=== PATIENT | female | born 1995 | race Caucasian/White ===

== ENCOUNTER 2023-05-31 13:13 | Inpatient (IN) | payer BC ==
[2023-05-31 13:52] LABS: #Eosinphils 0.1 10x3/uL (0.0-0.5); #Monocytes 0.3 10x3/uL (0.0-1.1); #Neutrophils 3.1 10x3/uL (1.5-8.4); %Basophils 0.4 % (0.0-2.0); %Lymphocytes 31.3 % (18.0-47.0); %Monocytes 6.1 % (0.0-10.0); Hematocrit 46.5 % (34.9-44.5); Hemoglobin 16.1 g/dL (12.0-15.5); Mean Corpuscular HGB CONC 34.6 g/dL (32.0-36.0); Mean Corpuscular Hemoglobin 31.9 pg (27.0-33.0); Mean Corpuscular Volume 92.3 fl (81.6-98.3); Mean Platelet Volume 8.9 fl (7.4-10.4); Platelet Count 215 10x3/uL (150-450); RBC Distribution Width 11.7 % (11.5-14.5); Red Blood Cell (RBC) Count 5.04 10x6/uL (3.90-5.03); White Blood Cell (WBC) Count 5.1 10x3/uL (3.5-10.5)
[2023-05-31 14:06] LABS: BHCG - Serum Negative (NEGATIVE); Pregs Control Background? CLEAR/WHITE (CLR/WHITE); Pregs Control Bar Appear? YES (CONTROL BAR)
[2023-05-31 14:14] LABS: ALT (SGPT) 17 U/L (8-55); AST (SGOT) 21 U/L (5-34); Acetaminophen Less than 10 mcg/mL (10.0-30.0); Albumin 5.1 g/dL (3.5-5.0); Alcohol Less than 10.0 mg/dL (Less than 10); Alkaline Phosphatase 74 U/L (40-110); Anion Gap 16 mmol/L (10-20); BUN (Urea Nitrogen) 11 mg/dL (7.0-18.7); Bilirubin, Total 0.7 mg/dL (0.2-1.2); Calc. Creatinine Clearance 0 mL/min (70-130); Calcium 9.6 mg/dL (7.8-10.44); Carbon Dioxide 21 mmol/L (22-29); Chloride 106 mmol/L (98-107); Estimated GFR 90; Globulin 3.2 g/dL (2.4-3.5); Glucose 123 mg/dL (70-105); Potassium 3.8 mmol/L (3.5-5.1); Protein, Total 8.3 g/dL (6.0-8.3); Salicylate Less than 8.0 mg/dL (15.0-30.0); Sodium 139 mmol/L (136-145)
[2023-05-31 14:20] LABS: Troponin I Less than 0.010 ng/mL (< 0.028)
[2023-05-31 14:41] LABS: Amphetamine Not Detected (NotDetected); Barbiturates Screen Not Detected (NotDetected); Benzodiazepine Screen Not Detected (NotDetected); Cocaine Metabolite Screen Not Detected (NotDetected); Methadone Not Detected (NotDetected); Methamphetamine Not Detected (NotDetected); Opiate Screen Not Detected (NotDetected); Oxycodone Screen Not Detected (NotDetected); Phencyclidine (PCP) Not Detected (NotDetected); THC/Cannabinoid Screen Not Detected (NotDetected); Tricyclic Screen Not Detected (NotDetected)
[2023-05-31 18:05] VITALS: BMI 25.2
[2023-05-31] MEDS ORDERED: Rosuvastatin 20 MG TAB PO SCH (21:00)
[2023-05-31 23:43] LABS: D-Dimer Test 1.67 mg/L FEU (0.19-0.50); INR-International Normal Ratio 0.9; PTT 26.8 sec (22.0-33.0)
[2023-05-31] MEDS ORDERED: Acetaminophen 325 MG TAB PO SCH (23:59)
[2023-06-01 04:18] LABS: Cardiac Risk 4.1 (Less than 4.5)
[2023-06-01] MEDS ORDERED: Aspirin 81 mg Enteric Coated Tablet PO SCH (09:00)
[2023-06-01 14:10] LABS: Cardiolipin IgA Ab 3.1 APL-U/mL (<14 Negative); Cardiolipin IgG Ab 1.1 GPL-U/mL (<10 Negative); Cardiolipin IgM Ab 2.6 MPL-U/mL (<10 Negative); EliA APS New Method **** NEW METHOD ****
[2023-06-01 16:41] VITALS: BP 114/62; TEMP 98.6
[2023-06-04 11:00] LABS: HEX PHOS LA Tube 2 36.7 SEC; Hexagonal Phospholipid Neut 3.2 SEC (0-8.0)
== END 2023-06-01 17:02 | disposition home or self-care (01) | DRG 69 ==
LOC: CSHERS 13:13 → CSHTELE 16:31
PROVIDERS: ADMIT Internal Medicine; ATTEND Internal Medicine
DX: G45.9 Transient cerebral ischemic attack, unspecified (principal); F90.9 Attention-deficit hyperactivity disorder, unspecified type; K75.81 Nonalcoholic steatohepatitis (NASH); R48.2 Apraxia; D68.52 Prothrombin gene mutation; Z79.899 Other long term (current) drug therapy; Z88.2 Allergy status to sulfonamides; Z90.49 Acquired absence of other specified parts of digestive tract; Z98.890 Other specified postprocedural states
CPT/HCPCS: 36415; 36416; 70496; 70498; 70551; 71045; 80053; 80061; 80306; 80307; 83090; 84484; 84703; 85025; 85300; 85303; 85305; 85307; 85379; 85598; 85610; 85730; 86147; 93005; 93010; 93306; J1650